=== PATIENT | female | born 1975 | race Hispanic/Latino ===

== ENCOUNTER 2024-12-14 08:22 | Inpatient (IN) | payer BC, OTHER ==
[~2024-12-14] VITALS: Ht 167.6 cm; Wt 108.9 kg
[~2024-12-14 08:22] MED LIST: ADIPEX-P37.5 M1 PO; BYSTOLIC10 MG PO; NORCO 10-325 T1 EACH PO; [UNRECOGNIZED DRUG - OTHER] TOP
[2024-12-14 08:25] VITALS: TEMP 98.5
[2024-12-14 08:58] LABS: BASOPHILS % 0.5 % (0.0-1.0); EOSINOPHILS % 2.7 % (0.0-6.0); LYMPHOCYTES % 27.8 % (18.0-39.1); MONOCYTES % 7.6 % (4.4-11.3); NEUTROPHILS % 59.7 % (38.7-80.0); RED CELL DISTRIBUTION WIDTH 17.8 % (11.7-14.4)
[2024-12-14] MEDS: SODIUM CHLORIDE 0.9% 1000ML 1,000 ML IV STA (09:07)
[2024-12-14 09:15] VITALS: PULSE 98; RESP 20
[2024-12-14] MEDS ORDERED: ONDANSETRON HCL INJ 2MG/ML 2ML 2 MG/ML VIAL IV PRN (09:15)
[2024-12-14 09:17] LABS: INR 0.83
[2024-12-14 09:29] LABS: EST GLOMERULAR FILTRATION RATE 92.0 ML/MIN (>=60)
[2024-12-14] MEDS: SODIUM CHLORIDE 0.9% 1000ML 1,000 ML IV SCH (09:43)
[2024-12-14] MEDS: ACETAMINOPHEN 325 MG TAB PO PRN (09:43)
[2024-12-14 09:56] LABS: % IRON SATURATION 3.0 % (15-50)
[2024-12-14 10:50] VITALS: BP 167/95; PULSE 86; RESP 18; O2SAT 99
[2024-12-14] MEDS ORDERED: CELEBREX200 MG PO (11:03)
[2024-12-14] MEDS: SODIUM CHLORIDE 0.9% 250ML 250 ML ONE ×2 (12:29→16:09)
[2024-12-14 15:58] VITALS: BP 147/83; PULSE 87; RESP 18; TEMP 98.2; O2SAT 100
[2024-12-14 20:00] VITALS: BP 156/95; PULSE 89; RESP 18; TEMP 98.7; O2SAT 100
[2024-12-14 21:00] VITALS: BP 156/95; PULSE 89; RESP 18; TEMP 98.7; O2SAT 100
[2024-12-15] VITALS: BP 147/88; PULSE 95; RESP 18; TEMP 98; O2SAT 100
[2024-12-15 04:00] VITALS: BP 115/77; PULSE 83; RESP 20; TEMP 98; O2SAT 100
[2024-12-15 05:54] LABS: BASOPHILS % 0.5 % (0.0-1.0); EOSINOPHILS % 2.7 % (0.0-6.0); LYMPHOCYTES % 28.6 % (18.0-39.1); MONOCYTES % 7.7 % (4.4-11.3); NEUTROPHILS % 59.2 % (38.7-80.0); RED CELL DISTRIBUTION WIDTH 18.4 % (11.7-14.4)
[2024-12-15 06:20] LABS: EST GLOMERULAR FILTRATION RATE 103.0 ML/MIN (>=60)
[2024-12-15 08:00] VITALS: BP 137/85; PULSE 72; RESP 18; TEMP 98.1; O2SAT 100
[2024-12-15] MEDS ORDERED: SODIUM CHLORIDE 0.9% 250ML 250 ML IV ONE (08:00)
[2024-12-15 08:15] VITALS: BP 137/85; PULSE 72; RESP 18; TEMP 98.1; O2SAT 100
[2024-12-15 12:00] VITALS: BP 144/92; PULSE 87; RESP 19; TEMP 98.2; O2SAT 100
[2024-12-15 16:00] VITALS: BP 155/91; PULSE 80; RESP 18; TEMP 98.8; O2SAT 100
== END 2024-12-15 17:15 | disposition home or self-care (01) | DRG 812 ==
LOC: ER 08:38 → ERHOLD 09:14 → MED/SURG2 11:30
PROVIDERS: ADMIT Internal Medicine; ATTEND Internal Medicine
PROC: 30233N1 Transfusion of Nonautologous Red Blood Cells into Peripheral Vein, Percutaneous Approach (ICD-10-PCS; principal; 2024-12-14)
DX: D64.9 Anemia, unspecified (principal); N92.0 Excessive and frequent menstruation with regular cycle; I10 Essential (primary) hypertension; R53.81 Other malaise; R73.9 Hyperglycemia, unspecified; E66.9 Obesity, unspecified; Z68.38 Body mass index [BMI] 38.0-38.9, adult; Z90.49 Acquired absence of other specified parts of digestive tract; Z88.1 Allergy status to other antibiotic agents; Z88.8 Allergy status to other drugs, medicaments and biological substances; Z88.5 Allergy status to narcotic agent; Z87.891 Personal history of nicotine dependence
CPT/HCPCS: 36415; 71045; 76856; 80053; 82550; 82728; 83540; 83735; 84466; 84484; 84702; 85025; 85610; 85730; 86850; 86900; 86920; 93005; 93976; 99284; J7030; J7050; P9016